=== PATIENT | female | born 1990 | race African-American/Black ===

== ENCOUNTER 2017-07-08 22:09 | Emergency (ER) | payer OTHER ==
[~2017-07-08] VITALS: Ht 165.1 cm; Wt 53.1 kg
[~2017-07-08 22:09] MED LIST: ARTHRITIS PAIN650 M2; HYDROXYZINE HCL25 M2 PO; LEXAPRO20 M1 PO; MOBIC15 M1 PO
[2017-07-08 22:36] LABS: ABSOLUTE BASOPHIL COUNT 0 /CUMM (0.0-0.2); ABSOLUTE EOSINOPHIL COUNT 0.1 /CUMM (0.0-0.7); ABSOLUTE GRANULOCYTE CT 3.6 /CUMM (1.4-6.5); ABSOLUTE LYMPH COUNT 1.4 /CUMM (1.2-3.4); ABSOLUTE MONOCYTE COUNT 0.6 /CUMM (0.10-0.60); BASOPHIL % 0 % (0.0-2.0); EOSINOPHIL % 1.1 % (0-5); GRANULOCYTE % 62.5 % (42.2-75.2); HEMATOCRIT 37.2 % (37-47); MEAN CORPUSCULAR HGB 28.8 PG (27.0-31.0); MEAN CORPUSCULAR HGB CONC 32.8 G/DL (33.0-37.0); PLATELET COUNT 256 /CUMM (130-400); RBC DISTRIBUTION WIDTH 12.3 % (11.5-14.5); RED BLOOD CELL CT 4.23 /CUMM (4.20-5.40); WHITE BLOOD CELL COUNT 5.7 /CUMM (4.8-10.8)
--- NOTE | 2017-07-08 23:37 | ED CARDIAC/CP/PALPITATIONS ---
History of Present Illness General Chief Complaint: General Adult Stated Complaint: CP SOB X1 WK Source: patient, old records Exam Limitations: no limitations Vital Signs & Intake/Output Vital Signs & Intake/Output Vital Signs Date Time Temp Pulse Resp B/P B/P Pulse O2 O2 Flow FiO2 Mean Ox Delivery Rate 07/08 2313 97 Room Air 07/08 2216 97.8 107 18 128/28 97 Room Air ED Intake and Output 07/09 0000 07/08 1200 Intake Total Output Total Balance Patient 117 lb Weight Weight Reported by Patient Measurement Method Allergies Coded Allergies: No Known Allergies (02/07/17) Reconcile Medications Acetaminophen (Arthritis Pain) (Unknown Strength) TABLET.ER (Unknown Dose) PRN PRN PAIN (Reported) TAKING GENERIC ARTHRITIS RELIEF PILLS, THINKS ACTIVE INGREDIENT IS ACETAMINOPHEN BUT UNSURE OF INGREDIENT[S] OR DOSE Escitalopram Oxalate (Lexapro) 20 MG TABLET 20 MG PO QHS MENTAL HEALTH ( Reported) Hydroxyzine Hydrochloride (Atarax) 25 MG TAB 25 MG PO QHS INSOMNIA/MENTAL HEALTH (Reported) Meloxicam (Mobic) 15 MG TABLET 1 TAB PO DAILY PRN pain Triage Note: PT FROM HOME C/O "CHEST TIGHTNESS" X1 WEEK PER PT. PT STATES SHE IGNORED IT BECAUSE PT THOUGHT IT WAS AN AXIETY ATTACK. PT STATES THE PAIN IS 8/10 OF BURNING PAIN THAT IS INTERMITTENT AND THE "TIGHT" FEELING IS CONSTANT. PTS VSS. PT DENIES BILATERAL ARM NUMBNESS/TINGLING, JAW OR BACK PAIN. Triage Nurses Notes Reviewed? yes Onset: Last week Duration: week(s):, continues in ED, intermittent, waxing and waning Timing: recent history Quality/Severity: mild, aching, dull Location: central Radiation: no radiation Activities at Onset: none Prior Chest Pain/Card Workup: no prior chest pain, no prior cardiac workup Nitro Today/Relief: no nitro taken today Aspirin Today: no aspirin today Associated Symptoms: shortness of breath LMP (ages 10-50): unknown : No Patient currently breastfeeds: No HPI: 1 week prior to admission patient complains of episodic chest pain mild severity dull achy nonradiating associated with shortness of breath fleeting. She denies fever chills nausea vomiting diarrhea abdominal pain cough headache dysuria rash bleeding . Past History Travel History Traveled to [place] past 21 day No Medical History Any Pertinent Medical History? 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 No Review of Systems Review of Systems Constitutional: Reports: no symptoms. EENTM: Reports: no symptoms. Respiratory: Reports: see HPI, short of breath. Cardiovascular: Reports: see HPI, chest pain. GI: Reports: no symptoms. Genitourinary: Reports: no symptoms. Musculoskeletal: Reports: no symptoms. Skin: Reports: no symptoms. Neurological/Psychological: Reports: no symptoms. Hematologic/Endocrine: Reports: no symptoms. Immunologic/Allergic: Reports: no symptoms. All Other Systems: Reviewed and Negative Physical Exam Physical Exam General Appearance: well developed/nourished, alert, awake, anxious, mild distress, thin Head: atraumatic, normal appearance Eyes: Bilateral: normal appearance, PERRL, EOMI. Ears, Nose, Throat: normal pharynx, normal ENT inspection Neck: normal inspection, supple, full range of motion, no midline tenderness Respiratory: normal breath sounds, chest non-tender, no respiratory distress, quiet respiration, lungs clear Cardiovascular: regular rate/rhythm, normal peripheral pulses, norml femoral pulses equa Peripheral Pulses: 4+ carotid (R), 4+ carotid (L) Gastrointestinal: normal bowel sounds, soft, non-tender, no organomegaly Back: normal inspection, normal range of motion Extremities: normal inspection, normal capillary refill, normal range of motion, no edema Neurologic/Psych: no motor/sensory deficits, awake, alert, oriented x 3, normal gait, normal mood/affect, 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 Skin: intact, normal color, warm/dry Lymphatic: no anterior cervical brandon Core Measures ACS in differential dx? Yes No ASA d/t Medical Contraindication CVA/TIA Diagnosis No Sepsis Present: No Sepsis Focused Exam Completed? No Progress Differential Diagnosis: costochondritis, hyperkalemia, hypovolemia, pneumonia, pulmonary embolism Plan of Care: Orders Procedure Date/time Status Add-on Test (ER Only) 07/081 Active HUMAN BETA HCG SCREEN 07/08 2226 Complete D-DIMER 07/08 2226 Complete TROPONIN LEVEL 07/08 2216 Complete COMPREHENSIVE METABOLIC PANEL 07/08 2216 Complete CBC WITHOUT DIFFERENTIAL 07/08 2216 Complete EKG 07/08 2210 Active Laboratory Tests 07/08/172226: Anion Gap 16, Estimated GFR > 60, BUN/Creatinine Ratio 13.3, Glucose 104 H, Calcium 9.7, Total Bilirubin 0.5, AST 17, ALT 18, Alkaline Phosphatase 50, Troponin I < 0.01, Total Protein 7.2, Albumin 4.4, Globulin 2.8, Albumin/ Globulin Ratio 1.6, Total Beta HCG NEGATIVE, D-Dimer High Sensitivty < 200, CBC w Diff NO MAN DIFF REQ, RBC 4.23, MCV 88.0, MCH 28.8, MCHC 32.8 L, RDW 12.3, MPV 8.0, Gran % 62.5, Lymphocytes % 25.1, Monocytes % 11.3 H, Eosinophils % 1.1 , Basophils % 0, Absolute Granulocytes 3.6, Absolute Lymphocytes 1.4, Absolute Monocytes 0.6, Absolute Eosinophils 0.1, Absolute Basophils 0 Diagnostic Imaging: Viewed by Me: Radiology Read. Discussed w/RAD: Radiology Read. CXR Impression: no acute abnormality, no infiltrates, normal size heart, normal mediastinum Initial ED EKG: normal axis, normal intervals, normal p-waves, normal QRS complex, normal sinus rhythm, nonspecific ST T wave chg Rhythm Strip: normal sinus rhythm Departure Departure Time of Disposition: 27 Disposition: HOME OR SELF CARE Condition: Stable Clinical Impression Primary Impression: Chest pain syndrome Referrals: Rekha BIRD,Namita (PCP/Family) Rosalind BIRD PHD,Juan Chaves Call for cardiology follow up Departure Forms: Customer Survey General Discharge Information Critical Care Note Critical Care Note Critical Care Time: non-applicable
--- NOTE | 2017-07-09 00:02 | RADIOLOGY REPORT ---
EXAMINATION: CHEST 2 VIEWS CLINICAL INFORMATION: Chest pain. COMPARISON: None. TECHNIQUE: PA and lateral views of the chest were obtained. FINDINGS: The cardiac silhouette is not enlarged. The mediastinal and hilar contours are unremarkable. There are neither pleural effusions nor pneumothoraces. There are no consolidations. The osseous structures are unremarkable. IMPRESSION: No evidence for acute disease.
[2017-07-09 00:38] VITALS: BP 124/22
--- NOTE | 2017-07-10 07:57 | OP PSYCH PROGRESS NOTE ---
Psych (Outpt) Progress Note Encounter Encounter Type Medication Management Date of Group or Service: 07/10/17 Time of Group or Service: 729 Subjective I returned her call and she reports that the dose of wellbutrin 300mg is making her nauseous, problems breathing. I have not seen this patient yet, she used to see Dr. Kennedy. So she agreed to cut the pill 300mg to half and if symptoms she is concerned about persist she needs to stop. She is free to call anytime.
== END 2017-07-09 00:39 ==
LOC: ERH 22:09
PROVIDERS: Emergency Medicine
DX: R07.89 Other chest pain (principal)
CPT/HCPCS: 71046; 93005; 93010